=== PATIENT | female | born 1935 | race Caucasian/White ===

== ENCOUNTER 2016-08-08 09:49 | Inpatient (IN) | payer OTHER ==
[2016-07-26 13:21] VITALS: BMI 26.0
--- NOTE | 2016-07-26 14:05 | PAT Medication Instructions ---
Service Date Jul 26, 2016. Current Home Medication List Aspirin (Aspirin Ec), 81 MG PO QAM Calcium/Vitamin D (Os-Jethro 500 Plus D), 1 TAB PO QAM Cholecalciferol (Vitamin D3), 1 TAB PO QAM Cyanocobalamin (Vitamin B-12), 1,000 MCG PO QAM Fentanyl (Fentanyl), 25 MCG TOP Q72 H Fish Oil ([place]-3), 1 CAP PO QAM Folic Acid (Folvite), 1 MG PO QAM Gabapentin (Neurontin), 600 MG PO TID Hydrochlorothiazide (Hctz *), 12.5 MG PO QAM Hydrocodone/Acetaminophen 5MG/325MG ([place] 5MG/325MG), 2 TABLETS PO TID PRN for Pain Lorazepam (Ativan *), 0.5 MG PO Q8HR PRN Methotrexate Sodium (Methotrexate), 6 TAB PO MONDAY Metoprolol Tartrate (Lopressor) (Lopressor), 50 MG PO BID Multiple Vitamins W/ Minerals (Hair/Skin/Nails), 1 TAB PO QAM Multivitamin (Multivitamin), 1 TAB PO QAM Probiotic Product (Probiotic), 1 CAP PO QAM Medication Instructions For Your Scheduled Surgery - Check with surgeon/prescribing for instructions: Methotrexate Sodium (Methotrexate), 6 TAB PO MONDAY - Hold the following medications starting 07/27/16: Fish Oil ([place]-3), 1 CAP PO QAM - Hold the following medications the morning of surgery: Multivitamin (Multivitamin), 1 TAB PO QAM Probiotic Product (Probiotic), 1 CAP PO QAM Multiple Vitamins W/ Minerals (Hair/Skin/Nails), 1 TAB PO QAM Hydrochlorothiazide (Hctz *), 12.5 MG PO QAM Folic Acid (Folvite), 1 MG PO QAM Cyanocobalamin (Vitamin B-12), 1,000 MCG PO QAM Calcium/Vitamin D (Os-Jethro 500 Plus D), 1 TAB PO QAM Cholecalciferol (Vitamin D3), 1 TAB PO QAM - Take the following medications the morning of surgery with a sip of water: Metoprolol Tartrate (Lopressor) (Lopressor), 50 MG PO BID Lorazepam (Ativan *), 0.5 MG PO Q8HR PRN (if needed) Gabapentin (Neurontin), 600 MG PO TID Fentanyl (Fentanyl), 25 MCG TOP Q72 H (okay to take up to 4 hours prior to surgery if needed) Hydrocodone/Acetaminophen 5MG/325MG ([place] 5MG/325MG), 2 TABLETS PO TID PRN for Pain (okay to take up to 4 hours prior to surgery if needed) Aspirin (Aspirin Ec), 81 MG PO QAM (okay to continue per surgeon) - Take the following medications as scheduled the night before surgery: Metoprolol Tartrate (Lopressor) (Lopressor), 50 MG PO BID Lorazepam (Ativan *), 0.5 MG PO Q8HR PRN (if needed) Gabapentin (Neurontin), 600 MG PO TID Fentanyl (Fentanyl), 25 MCG TOP Q72 H (if needed) Hydrocodone/Acetaminophen 5MG/325MG ([place] 5MG/325MG), 2 TABLETS PO TID PRN for Pain (if needed) If you have any questions please call us at [phone] (Selina Burns PA-C) or [phone] or [phone]
[2016-07-26 14:42] LABS: HEMATOCRIT 41.7 % (37-47); MEAN CELL VOLUME 90.3 fL (80-100); MEAN CORPUSCULAR HEMOGLOBIN 30.1 pg (25-34); MEAN CORPUSCULAR HGB CONC 33.3 g/dl (32-36); MEAN PLATELET VOLUME 9.3 fL (7.4-10.4); PLATELET COUNT 310 K/uL (130-400); RED BLOOD COUNT 4.62 M/uL (4.2-5.4); WHITE BLOOD COUNT 6.39 K/uL (4.8-10.8)
--- NOTE | 2016-07-26 14:46 | DIAGNOSTIC IMAGING REPORT ---
CHEST PREADMISSION(PA/LAT) HISTORY: Preop. COMPARISON: Chest 03/31/2011. FINDINGS: Mild interstitial thickening at the lung bases persist. The heart is normal in size. No pleural effusions. No pneumothorax. No new focal lung consolidations. No evidence for pulmonary edema. IMPRESSION: Mild chronic interstitial thickening, unchanged. No acute process within the chest. Electronically signed by: Leonides Sainz M.D. 07/26/2016 2:44 PM Dictated Date/Time: 07/26/2016 2:43 PM
--- NOTE | 2016-07-26 14:47 | DIAGNOSTIC IMAGING REPORT ---
CERVICAL SPINE 3 VIEWS HISTORY: Millimeters right PREOP, RHEUMATOID ARTHRITIS COMPARISON: None. FINDINGS: The cervical spine is visualized from C1 through the superior endplate of T1. There is no fracture. Degenerative changes noted throughout. Degenerative grade 1 anterolisthesis C4 on C5 of the patient in neutral position. Anterolisthesis increases to 3.2 mm with the patient in flexion and reduces to 1.8 mm with patient in neutral and/or extension. There is no evidence for subluxation or positional change of the C1-C2 complex. Moderate degenerative this changes throughout. Prevertebral soft tissues and the atlantodens interval are intact. IMPRESSION: 1. Grade 1 anterolisthesis C4 on C5 secondary to degenerative changes of posterior lungs. 2. This increases from 1.8 mm to 3.2 mm with the patient in flexion. 3. No evidence for positional subluxation at C1-C2 Electronically signed by: Rajesh Narvaez M.D. 07/26/2016 2:45 PM Dictated Date/Time: 07/26/2016 2:42 PM
[2016-07-26 14:50] LABS: URINE APPEARANCE CLEAR (CLEAR); URINE BILIRUBIN NEG (NEG); URINE COLOR DK YELLOW; URINE EPITHELIAL CELL AUTO >30 /lpf (0-5); URINE NITRITE NEG (NEG); URINE PH 6.5 (4.5-7.5); URINE SPECIFIC GRAVITY 1.022 (1.000-1.030); UROBILINOGEN NEG (NEG); ZZUR CULT IF INDIC CLEAN CATCH NO
[2016-07-26 14:54] LABS: PARTIAL THROMBOPLASTIN RATIO 1.1; PROTHROMBIN TIME (PATIENT) 10.8 SECONDS (9.0-12.0)
[2016-07-26 15:00] LABS: MANUAL MICROSCOPIC REQUIRED? NO; REVIEW REQ? NO
[2016-07-26 15:14] LABS: BUN/CREATININE RATIO 9.7 (10-20); CALCIUM 9.1 mg/dl (8.5-10.1); CREATININE 0.69 mg/dl (0.60-1.20); POTASSIUM 3.7 mmol/L (3.5-5.1)
[2016-07-26 15:39] LABS: BASO % 0.8 %; BASO ABS # 0.05 K/uL (0-0.2); COMPLETE YES; EOS % 3.6 %; IG% 0.2 %; LYMPH % 36.8 %; LYMPH ABS # 2.35 K/uL (1.2-3.4); MONO % 8.9 %; NEUT % 49.7 %
--- NOTE | 2016-08-05 08:30 | HISTORY & PHYSICAL EXAMINATION ---
DATE OF ADMISSION: 08/08/2016 CHIEF COMPLAINT: Right hip pain. HISTORY OF PRESENT ILLNESS: Ms. Juares is a 81-year-old female with a multiple year history of right hip pain. The patient rates her pain at 10/10. She has pain with her daily activities. She has limited standing and walking tolerance. Pain is worse with weightbearing. The patient is using a walker to ambulate. She has been taking Tylenol and Folsom without relief. She has failed conservative treatment and is scheduled for right hip replacement. PAST MEDICAL HISTORY: Hypertension, anxiety, rheumatoid arthritis, CIDP, Sjgren's, and sleep apnea. She denies heart disease, diabetes or DVT. PAST SURGICAL HISTORY: Bilateral TKA and an old lumbar surgery. SOCIAL HISTORY: The patient denies alcohol or tobacco use. She lives in a single-robert home. 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 FAMILY HISTORY: Positive for DVT on her mother's side. MEDICATIONS: Aspirin 81 mg daily, Ativan 0.5 mg p.r.n., atorvastatin 20 mg daily, vitamin B12, fentanyl patch 25 mcg every 72 hours, fish oil, folic acid, gabapentin 300 mg 2 capsules 3 times daily, hydrochlorothiazide 25 mg half tablet daily, methotrexate 2.5 mg 6 tablets once per week, metoprolol 50 mg b.i.d., probiotic, Vicodin 5/325, vitamin D3, and pilocarpine 5 mg. ALLERGIES: PENICILLIN AND BACTRIM. REVIEW OF SYSTEMS: See HPI. Ten other systems reviewed, all negative. PHYSICAL EXAMINATION: VITAL SIGNS: Height 5 feet 4 inches, weight 154 pounds, and BMI is 26. GENERAL: This is a well-developed and well-nourished female who is alert and oriented x3. Mood and affect are appropriate. HEENT: Normocephalic and atraumatic. Mucous membranes are moist and intact. NECK: Supple without lymphadenopathy. HEART: Regular rate and rhythm without murmurs, rubs or gallops. LUNGS: Clear to auscultation without wheezes or rhonchi. ABDOMEN: Soft and nontender. Bowel sounds are equal and active. EXTREMITIES: No ecchymosis, redness or warmth. Thigh and calf are soft and nontender. Log roll of the hip reproduces the pain in the groin. Range of motion is significantly decreased. She is neurovascularly intact with +5/5 strength. She walks with an antalgic gait. X-RAY EXAMINATION: AP and lateral views show joint space narrowing and osteophyte formation. IMPRESSION: Degenerative joint disease, right hip. PLAN: The patient will be admitted for a right total hip arthroplasty. We will plan on aspirin for DVT prophylaxis. The patient is on chronic Folsom. She may have issues with pain control postoperatively. She has [facility] insurance and will need home physical therapy. GIGI
[~2016-08-08] VITALS: Ht 162.6 cm; Wt 70.4 kg
[2016-08-08] VITALS (8 sets, daily range): BP systolic 117–136; BP diastolic 63–72; PULSE 56–83; TEMP 36.4–36.7; O2SAT 94–99; Ht 162.6 cm; Wt 70.4 kg
[2016-08-08] MEDS: TRANEXAMIC ACID INJ 1,000 MG in SODIUM CHLORIDE 0.9% 100ML 100 ML IV SCH ×2 (06:30→11:23)
[~2016-08-08 09:49] MED LIST: ACETAMINOPHEN 500 MG TAB PO SCH; ASPI81TA28 PO; ATV5 PO; BUPIVACAINE 0.5 % 5 MG/1 ML PF 10ML VIAL ONE; CALC500C70 PO; CHOL1000 PO; CLINDAMYCIN 600 MG/54 ML D5W 54 ML IV SCH; CYAN10005 PO; DEXAMETHASONE 4 MG TAB PO SCH; FAMOTIDINE 20 MG TAB PO SCH; FNTTP25 TOP; FOLI1TAB7 PO; GABA-113 PO; GABAPENTIN 300 MG CAP PO SCH; HYDC25 PO; HYDR-5688 PO; LACTATED RINGER'S 1000ML IV SCH; METH2.5T PO; METO50TA16 PO; METOPROLOL TARTRATE 50 MG TAB PO SCH; MISCCAP80 PO; MULT-506 PO; MULT-580 PO; OMEG10007 PO; OXYCODONE HCL 10 MG TABCR (OXYCONTIN) PO SCH; POLYMYXIN B SULFATE 100,000 UNITS in NSS 100ML IR SCH; ROPIVACAINE 5MG/ML 30 ML 150 MG, BUPIVACAINE/EPINEPHR 0.5% MPF 30 ML, KETOROLAC TROMETH... INFIL SCH; VANCOMYCIN INJ 400 MG in NSS 100ML IR SCH
[2016-08-08] MEDS ORDERED: MIDAZOLAM HCL 1 MG/ML 2ML VIAL ONE (10:06)
[2016-08-08] MEDS ORDERED: LIDOCAINE HCL 2% 2 ML VIAL (20MG/ML) ONE (10:07)
[2016-08-08] MEDS ORDERED: FENTANYL CITRATE INJ 50 MCG/1 ML 2 ML VIAL ONE (10:07)
[2016-08-08] MEDS ORDERED: PROPOFOL IV EMULSION 10 MG/ML 20 ML VIAL IV ONE ×2 (10:07→12:24)
[2016-08-08] MEDS ORDERED: ONDANSETRON INJ 2 MG/ML 2 ML VIAL ONE (10:08)
--- NOTE | 2016-08-08 10:51 | History & Physical Bridge Note ---
H&P Re-Evaluation Bridge Note: I have examined the patient, reviewed the History & Physical and in the interval since the performance of the History & Physical I have noted the following changes of clinical significance: No changes noted
[2016-08-08] MEDS ORDERED: POVIDONE-IODINE OP SOLN 30 ML BTL ONE (11:11)
[2016-08-08] MEDS ORDERED: BACITRACIN 50000 UNIT VIAL ONE (11:11)
[2016-08-08] MEDS ORDERED: EpHEDrine SULFATE INJ 50 MG/ML AMP ONE (12:25)
[2016-08-08] MEDS ORDERED: EpHEDrine SULFATE 50MG/5ML SYR ONE (12:25)
[2016-08-08] MEDS ORDERED: TRAMADOL HCL 50 MG TAB PO PRN (13:15)
[2016-08-08] MEDS ORDERED: ALUMINUM/MAGNESIUM/SIMETH (MAALOX MAX) 30 ML UDC PO PRN (13:15)
[2016-08-08] MEDS ORDERED: ZOLPIDEM TARTRATE 5 MG TAB PO PRN (13:15)
[2016-08-08] MEDS ORDERED: MoRPHine SULFATE 2 MG/ML CARP IV PRN (13:15)
[2016-08-08] MEDS ORDERED: MAGNESIUM HYDROXIDE SUSP 30 ML UDC PO PRN (13:15)
[2016-08-08] MEDS ORDERED: SOD PHOSPHATE/SOD BIPHOSPHATE ENEMA 132 ML BTL PR PRN (13:15)
[2016-08-08] MEDS ORDERED: BISACODYL 10 MG SUPP PR PRN (13:15)
[2016-08-08] MEDS ORDERED: METOCLOPRAMIDE HCL INJ 5 MG/ML 2 ML VIAL IV PRN (13:15)
[2016-08-08] MEDS ORDERED: DiphenhydrAMINE HCL 50 MG/ML VIAL IV PRN (13:15)
[2016-08-08] MEDS ORDERED: ONDANSETRON INJ 2 MG/ML 2 ML VIAL IV PRN ×2 (13:15→15:15)
[2016-08-08] MEDS ORDERED: OXYCODONE HCL IR 5 MG TAB (IMMEDIATE RELEASE) PO PRN (13:15)
--- NOTE | 2016-08-08 13:15 | [facility] Post Operative Brief Note ---
Immediate Operative Summary Operative Date August 08, 2016. Pre-Operative Diagnosis Right Hip Degenerative Joint Disease Post-Operative Diagnosis Right Hip Degenerative Joint Disease Procedure(s) Performed Right Total Hip Arthroplasty, Direct Anterior Approach Surgeon Dr. Amadeo Quiroz Message And Delivery Service Pricer Surgeon(s) Chey Rodriguez PA-C Estimated Blood Loss 300ML Findings DJD BLOODY FROM CANAL Specimens A. Right femoral head Complication(s) None Disposition Recovery Room / PACU
--- NOTE | 2016-08-08 13:58 | DIAGNOSTIC IMAGING REPORT ---
RIGHT HIP UNILATERAL 1 VIEW CLINICAL HISTORY: RT ANTERIOR HIP Right COMPARISON: None. DISCUSSION: No evidence for a total right hip arthroplasty. Alignment appears to be anatomic. Expected soft tissue postoperative change IMPRESSION: Total right hip replacement Electronically signed by: Rajesh Narvaez M.D. 08/08/2016 1:57 PM Dictated Date/Time: 08/08/2016 1:56 PM
[2016-08-08] MEDS ORDERED: LORAZEPAM 0.5 MG TAB PO PRN (14:00)
--- NOTE | 2016-08-08 14:38 | DIAGNOSTIC IMAGING REPORT ---
RIGHT PELVIS/UNILATERAL HIP 1 VIEW CLINICAL HISTORY: IN PACU - A/P PELVIS and LATERAL HIP INCLUDING ALL OF IMPLANT Right postoperative evaluation COMPARISON: None. DISCUSSION: The bones and joint spaces appear intact. There is no evidence of fracture, dislocation or bony disease. Expected postoperative changes post right hip arthroplasty IMPRESSION: Anatomic alignment status post right hip arthroplasty Electronically signed by: Rajesh Narvaez M.D. 08/08/2016 2:36 PM Dictated Date/Time: 08/08/2016 2:35 PM
--- NOTE | 2016-08-08 14:51 | Anesthesiology Progress Note ---
Anesthesia Post Op Note Date & Time August 08, 2016 at 14:47 Vital Signs Pain Intensity: 0 Vital Signs Past 12 Hours Date Time Temp Pulse Resp B/P Pulse Ox O2 Delivery O2 Flow Rate FiO2 08/08/16 14:35 119/58 08/08/16 14:32 82 13 98 08/08/16 14:32 82 13 08/08/16 14:30 132/65 08/08/16 14:27 78 16 95 08/08/16 14:27 78 16 08/08/16 14:26 79 16 95 08/08/16 14:26 79 16 08/08/16 14:25 128/63 08/08/16 14:21 76 16 08/08/16 14:21 75 16 97 08/08/16 14:20 132/55 08/08/16 14:16 78 14 08/08/16 14:16 77 14 98 08/08/16 14:15 121/71 08/08/16 14:14 77 15 08/08/16 14:14 77 15 100 08/08/16 14:10 133/64 08/08/16 14:09 77 20 08/08/16 14:09 76 20 89 08/08/16 14:05 137/68 08/08/16 14:04 74 16 96 08/08/16 14:04 73 16 08/08/16 14:00 136/62 08/08/16 13:59 76 12 08/08/16 13:59 76 12 100 08/08/16 13:55 136/66 08/08/16 13:54 78 13 08/08/16 13:54 13 08/08/16 13:50 126/65 08/08/16 13:49 81 22 08/08/16 13:49 22 08/08/16 13:46 122/65 08/08/16 13:44 79 16 08/08/16 13:44 81 16 08/08/16 13:40 132/65 08/08/16 13:39 78 16 100 08/08/16 13:39 79 16 08/08/16 13:35 136/63 08/08/16 13:34 36.5 82 16 129/63 100 Mask 10 08/08/16 13:34 82 11 100 08/08/16 13:34 82 11 08/08/16 10:19 36.5 56 18 136/63 96 Room Air Notes Mental Status: alert / awake / arousable, participated in evaluation Pt Amnestic to Procedure: Yes Nausea / Vomiting: adequately controlled Pain: adequately controlled Airway Patency, RR, SpO2: stable & adequate BP & HR: stable & adequate Hydration State: stable & adequate Neuraxial Anesthesia: was administered, sensory block is resolving Anesthetic Complications: no major complications apparent In PACU, pt noted to have some chest pressure. She stated that it was worsened with deep inhalations. A 12 lead EKG was ordered, and there was no noticeable change from her previous EKG. Her vital signs were stable throughout. I spoke with the pt and her daughter concerning the EKG. The patient stated that her chest pressure was much improved. The patient was otherwise stable for discharge from the PACU.
[2016-08-08] MEDS ORDERED: FENTANYL CITRATE INJ 50 MCG/1 ML 2 ML VIAL IV PRN (15:15)
[2016-08-08] MEDS ORDERED: EpHEDrine SULFATE INJ 50 MG/ML AMP IV PRN (15:15)
[2016-08-08] MEDS ORDERED: ATROPINE SULFATE 0.1 MG/ML 5ML SYR IV PRN (15:15)
[2016-08-08] MEDS: CHECK FENTANYL PATCH PLACEMENT SCH (16:00)
--- NOTE | 2016-08-08 16:13 | OPERATIVE REPORT ---
DATE OF OPERATION: 08/08/2016 PREOPERATIVE DIAGNOSIS: Degenerative arthritis, right hip. POSTOPERATIVE DIAGNOSIS: Same. PROCEDURE: Right total hip replacement. SURGEON: Allen Quiroz MD SENIOR HADOOP DEVELOPER: KEI Salazar ANESTHESIA: Spinal. BLOOD LOSS: 300. REPLACEMENT FLUIDS: 2200 mL crystalloid. DRAINS: Hemovac x1. CULTURES: None. COMPLICATIONS: None. COMPONENTS USED: [employer]ud[employer] Polar hip system: Acetabulum size 50, femur size 4 high offset, femoral head -3, 32 mm. NOTE: Chey Rodriguez was present and assisted throughout due to the complicated nature of this case. She helped with preparation and set up, first assisted throughout and personally closed the fascial, subcutaneous and skin layers and applied the postoperative dressing. DESCRIPTION OF PROCEDURE: Following satisfactory spinal, the patient was supine. The right leg was placed in the traction device and the left leg in the well leg newberry. Right leg was prepared with ChloraPrep and draped sterilely. Following a surgical time-out, an anterior approach in the interval between the sartorius and tensor muscles was completed. The circumflex femoral vessels were identified and ligated. An anterior capsulotomy was performed exposing the arthritic femoral neck and head. The femoral neck and head were trimmed and removed. The acetabular self-retaining retractor was placed. Acetabular reaming was completed with fluoroscopic guidance and a 50 shell was impacted into an anatomic position, secured with a dome screw. Local anesthetic was placed and after irrigation, the poly liner was placed. The femur was placed into position of external rotation, extension and adduction. Femoral canal was prepared. There was moderate bleeding from the femoral canal itself. There was bleeding from the soft tissues. Femoral canal was prepared up to the size 4, trial reduction with a -3 head using fluoroscopy showed good fit and fill of the proximal canal and episcopal of leg lengths using anatomic julian. The trial component was removed. The final implant was placed. The hip was reduced and fluoroscopy confirmed the position. The wound was irrigated copiously and a Betadine soak was performed. After 5 minutes, the Betadine was irrigated. The capsule was closed with #1 Vicryl interrupted. Following irrigation, a drain was placed. The fascia was closed with a running suture of #1 Vicryl, the subcutaneous tissues with 2-0 Vicryl and the skin with a running subcuticular stitch of 3-0 V-Loc. Dermabond and a dry dressing were applied. The patient was returned to her bed in stable condition. I attest to the content of the Intraoperative Record and any orders documented therein. Any exceptio ns are noted below.
[2016-08-08] MEDS: D5W AND 1/2NSS + 20MEQ KCL 1,000 ML IV SCH (16:54)
[2016-08-08] MEDS: KETOROLAC TROMETHAMINE 15 MG/ML VIAL IV. SCH ×2 (16:55→21:44)
[2016-08-08] MEDS: ACETAMINOPHEN 500 MG TAB PO SCH (18:36)
[2016-08-08] MEDS ORDERED: PNEUMOCOCCAL POLYSACCHARIDES 25 MCG/0.5 ML VIAL/SYR IM. ONE (18:45)
[2016-08-08] MEDS ORDERED: PNEUMOCOCCAL ADMINISTRATION CHARGE ONE (18:45)
[2016-08-08] MEDS ORDERED: TRANEXAMIC ACID INJ 1,000 MG in SODIUM CHLORIDE 0.9% 100ML 100 ML IV ONE (19:30)
[2016-08-08] MEDS: CLINDAMYCIN IV 600 MG in DEXTROSE 5% ADD-VANTAGE 50ML 50 ML IV SCH (20:29)
[2016-08-08] MEDS: ASPIRIN 81 MG ECTAB PO SCH (20:32)
[2016-08-08] MEDS: METOPROLOL TARTRATE 50 MG TAB PO SCH (20:32)
[2016-08-08] MEDS: GABAPENTIN 600 MG TAB PO SCH (20:33)
[2016-08-08] MEDS ORDERED: SENNA 8.6 MG TAB PO SCH (21:00)
[2016-08-09] MEDS: CHECK FENTANYL PATCH PLACEMENT SCH ×3 (00:07→15:37)
[2016-08-09] MEDS: ACETAMINOPHEN 500 MG TAB PO SCH ×2 (01:52→09:11)
[2016-08-09] MEDS: D5W AND 1/2NSS + 20MEQ KCL 1,000 ML IV SCH ×2 (01:52→12:00)
[2016-08-09 03:31] VITALS: BP 126/72; PULSE 61; TEMP 36.5; O2SAT 96
[2016-08-09 05:09] LABS: BASO % 0.1 %; BASO ABS # 0.01 K/uL (0-0.2); HEMATOCRIT 32.6 % (37-47); IG% 0.3 %; LYMPH % 8.3 %; LYMPH ABS # 1.25 K/uL (1.2-3.4); MEAN CELL VOLUME 86.9 fL (80-100); MEAN CORPUSCULAR HEMOGLOBIN 30.4 pg (25-34); MEAN PLATELET VOLUME 8.8 fL (7.4-10.4); MONO % 6.1 %; NEUT % 85.2 %; PLATELET COUNT 231 K/uL (130-400); RED BLOOD COUNT 3.75 M/uL (4.2-5.4); WHITE BLOOD COUNT 15.14 K/uL (4.8-10.8)
[2016-08-09 05:12] LABS: COMPLETE YES
[2016-08-09 05:29] LABS: BUN/CREATININE RATIO 19.2 (10-20); CREATININE 0.62 mg/dl (0.60-1.20); MAGNESIUM 1.7 mg/dl (1.8-2.4); POTASSIUM 4.8 mmol/L (3.5-5.1)
[2016-08-09] MEDS: KETOROLAC TROMETHAMINE 15 MG/ML VIAL IV. SCH (06:00)
[2016-08-09] MEDS: CLINDAMYCIN IV 600 MG in DEXTROSE 5% ADD-VANTAGE 50ML 50 ML IV SCH (06:01)
--- NOTE | 2016-08-09 06:40 | DIAGNOSTIC IMAGING REPORT ---
HEAD CT NONCONTRAST CT DOSE: 614.27 mGy.cm HISTORY: Mental status change confusion TECHNIQUE: Multiaxial CT images of the head were performed without the use of intravenous contrast. Comparison: None. Findings: The paranasal sinuses and mastoid air cells are clear. The calvarium and skull base are intact. The ventricles and sulci are within normal limits. There is no mass, hematoma, midline shift, or acute infarct. Findings of age-related chronic small vessel change and atrophy. Impression: No acute intracranial abnormality. Age-related change Electronically signed by: Rajesh Narvaez M.D. 08/09/2016 6:38 AM Dictated Date/Time: 08/09/2016 6:37 AM
[2016-08-09 07:24] VITALS: BP 121/70; PULSE 67; TEMP 36.5; O2SAT 97
[2016-08-09] MEDS ORDERED: CHOLECALCIFEROL 1000 INTER.UNIT TAB PO SCH (09:00)
[2016-08-09] MEDS ORDERED: PANTOprazole SOD 40 MG TAB PO SCH (09:00)
[2016-08-09] MEDS ORDERED: HYDROCHLOROTHIAZIDE 25 MG TAB PO SCH (09:00)
[2016-08-09] MEDS ORDERED: LACTOBACILLUS ACIDOPHILUS (FLORANEX) TAB PO SCH (09:00)
[2016-08-09] MEDS ORDERED: CALCIUM 600MG + VIT D 400 IU TAB PO SCH (09:00)
[2016-08-09] MEDS ORDERED: MULTIVITAMIN TAB PO SCH (09:00)
[2016-08-09] MEDS ORDERED: CYANOCOBALAMIN 500 MCG TAB (VIT B-12) PO SCH (09:00)
[2016-08-09] MEDS: GABAPENTIN 600 MG TAB PO SCH ×2 (09:06→12:48)
[2016-08-09] MEDS: METOPROLOL TARTRATE 50 MG TAB PO SCH (09:07)
[2016-08-09] MEDS: ASPIRIN 81 MG ECTAB PO SCH (09:07)
--- NOTE | 2016-08-09 09:34 | Anesthesiology Progress Note ---
Anesthesia Post Op Note Date & Time August 09, 2016 at 09:33 Vital Signs Pain Intensity: 0.0 Vital Signs Past 12 Hours Date Time Temp Pulse Resp B/P Pulse Ox O2 Delivery O2 Flow Rate FiO2 08/09/16 07:24 36.5 67 16 121/70 97 Room Air 08/09/16 03:31 36.5 61 14 126/72 96 Room Air 08/09/16 00:00 Room Air 08/08/16 22:22 36.5 67 16 124/65 94 Room Air Notes Mental Status: alert / awake / arousable, participated in evaluation Pt Amnestic to Procedure: Yes Nausea / Vomiting: adequately controlled Pain: adequately controlled Airway Patency, RR, SpO2: stable & adequate BP & HR: stable & adequate Hydration State: stable & adequate Neuraxial Anesthesia: sensory block resolved Anesthetic Complications: no major complications apparent
--- NOTE | 2016-08-09 09:50 | Orthopedic Progress Note ---
Orthopedic Progress Note Date of Service August 09, 2016. Subjective Post OP Day: 1 Reports: feeling well, Denies: SOB, calf pain, chest pain, light headedness, nausea / vomiting Additional Notes: WOKE UP LAST NIGHT WITH CONFUSION. MEDICINE CONSULTED, HEAD CT NEGATIVE. Objective calves soft nontender, N/V intact, hip located, dressing C/D/I, A&O x3, toes mobile, hemovac drainage (180/140CC PER SHIFT) Date Time Temp Pulse Resp B/P Pulse Ox O2 Delivery O2 Flow Rate FiO2 08/09/16 07:24 36.5 67 16 121/70 97 Room Air 08/09/16 07:10 Room Air 08/09/16 03:31 36.5 61 14 126/72 96 Room Air 08/09/16 00:00 Room Air 08/08/16 22:22 36.5 67 16 124/65 94 Room Air 08/08/16 19:26 36.6 80 16 119/69 99 Nasal Cannula 2.0 08/08/16 18:36 36.6 83 16 117/64 98 Nasal Cannula 2.0 08/08/16 17:31 36.7 83 18 122/69 97 Nasal Cannula 3.0 08/08/16 16:30 36.4 82 16 118/72 97 Nasal Cannula 3.0 08/08/16 15:56 36.4 83 14 129/72 95 Nasal Cannula 2.0 08/08/16 15:30 95 Nasal Cannula 2.0 08/08/16 15:30 36.5 83 14 122/68 95 Nasal Cannula 2.0 08/08/16 15:30 95 Nasal Cannula 2.0 08/08/16 15:22 84 16 92 08/08/16 15:22 84 16 08/08/16 15:20 129/63 08/08/16 15:17 83 16 08/08/16 15:17 84 16 92 08/08/16 15:15 127/68 08/08/16 15:12 82 16 93 08/08/16 15:12 82 16 08/08/16 15:10 124/64 08/08/16 15:07 80 13 95 08/08/16 15:07 80 13 08/08/16 15:05 136/65 08/08/16 15:02 80 14 08/08/16 15:02 80 14 95 08/08/16 15:02 37.5 08/08/16 15:00 135/67 08/08/16 14:57 80 17 97 08/08/16 14:57 81 17 08/08/16 14:56 81 13 97 08/08/16 14:56 80 13 08/08/16 14:55 127/62 08/08/16 14:51 78 14 99 08/08/16 14:51 78 14 08/08/16 14:50 135/62 08/08/16 14:46 79 12 08/08/16 14:46 79 12 98 08/08/16 14:45 121/59 08/08/16 14:41 77 17 97 08/08/16 14:41 79 17 08/08/16 14:40 124/67 08/08/16 14:36 83 20 97 08/08/16 14:36 82 20 08/08/16 14:35 119/58 08/08/16 14:32 82 13 98 08/08/16 14:32 82 13 08/08/16 14:30 132/65 08/08/16 14:27 78 16 95 08/08/16 14:27 78 16 08/08/16 14:26 79 16 95 08/08/16 14:26 79 16 08/08/16 14:25 128/63 08/08/16 14:21 76 16 08/08/16 14:21 75 16 97 08/08/16 14:20 132/55 08/08/16 14:16 78 14 08/08/16 14:16 77 14 98 08/08/16 14:15 121/71 08/08/16 14:14 77 15 08/08/16 14:14 77 15 100 08/08/16 14:10 133/64 08/08/16 14:09 77 20 08/08/16 14:09 76 20 89 08/08/16 14:05 137/68 08/08/16 14:04 74 16 96 08/08/16 14:04 73 16 08/08/16 14:00 136/62 08/08/16 13:59 76 12 08/08/16 13:59 76 12 100 08/08/16 13:55 136/66 08/08/16 13:54 78 13 08/08/16 13:54 13 08/08/16 13:50 126/65 08/08/16 13:49 81 22 08/08/16 13:49 22 08/08/16 13:46 122/65 08/08/16 13:44 79 16 08/08/16 13:44 81 16 08/08/16 13:40 132/65 08/08/16 13:39 78 16 100 08/08/16 13:39 79 16 08/08/16 13:35 136/63 08/08/16 13:34 36.5 82 16 129/63 100 Mask 10 08/08/16 13:34 82 11 100 08/08/16 13:34 82 11 08/08/16 10:19 36.5 56 18 136/63 96 Room Air Laboratory Results 24 Hours: Test 08/09/16 05:00 White Blood Count 15.14 K/uL Red Blood Count 3.75 M/uL Hemoglobin 11.4 g/dL Hematocrit 32.6 % Mean Corpuscular Volume 86.9 fL Mean Corpuscular Hemoglobin 30.4 pg Mean Corpuscular Hemoglobin Concent 35.0 g/dl Platelet Count 231 K/uL Mean Platelet Volume 8.8 fL Neutrophils (%) (Auto) 85.2 % Lymphocytes (%) (Auto) 8.3 % Monocytes (%) (Auto) 6.1 % Eosinophils (%) (Auto) 0.0 % Basophils (%) (Auto) 0.1 % Neutrophils # (Auto) 12.92 K/uL Lymphocytes # (Auto) 1.25 K/uL Monocytes # (Auto) 0.92 K/uL Eosinophils # (Auto) 0.00 K/uL Basophils # (Auto) 0.01 K/uL Assessment & Plan Assessment: POD#1 SP RIGHT FLORENTINO, DIRECT ANTERIOR CONFUSION Plan: CONFUSION LIKELY FROM MEDICATIONS VS SUNDOWNING. WILL DC SHANELL AND PUT PATIENT BACK ON NORMAL VICODIN DOSAGE. Inhouse Planning Pain Management: Celebrex, PO Tylenol, Oxy IR DVT Prophylaxis: TEDs, SCDs, ASA Discharge Planning Discharge Planning: home with home health ([facility] LATER TODAY)
[2016-08-09] MEDS ORDERED: HYDROCODONE/ACETAMOPHEN 5/325MG TAB PO PRN (10:00)
--- NOTE | 2016-08-09 10:17 | Neurology Consultation ---
Neurology Consultation Date of Consultation: August 09, 2016. Attending Physician: Allen Quiroz M.D. Primary Care Physician: No Doctor, Assigned Reason for Consultation: Confusion History of Present Illness Source: patient, hospital records The patient is a 81-year-old female who underwent right total hip arthroplasty yesterday. She exhibited significant confusion upon being awoken for vital signs at around 4:30 in the morning. Her daughter is present at bedside and expresses some concerns regarding her mother's cognitive status. The patient's confusion has resolved, however. She does seem to be back at her baseline according to her daughter. Upon further questioning she has been exhibiting some mild difficulty with short-term memory on occasion. She does not have a known history of dementia. She has been complaining of some difficulty with poor balance of insidious onset over the past year or so as well. She denies any episodes of ravi urinary incontinence but does admit to some urgency from time to time. She denies headache. I reviewed the images and radiologist's interpretation of the CT of the recently completed CT of the head. There is evidence of mild generalized atrophy with an element of central atrophy as well as chronic small vessel ischemic change. No hemorrhage or other acute process appreciated. The patient's daughter shows me a brain MRI report from a study done at an outside institution in May of this year. Results were similar to the recent CT of the head indicating the presence of atrophy and chronic small vessel ischemic change. The study was apparently done to further evaluate some confusion around that time. Past Medical/Surgical History Past medical history notable for hypertension, rheumatoid arthritis and peripheral neuropathy. She apparently follows with a neurologist at an outside institution. Family History No family history of no neurodegenerative disease such as Alzheimer's or Parkinson's disease. Social History The patient is an active elderly female. She was born in [place]. She met her who is serving in the [employer] while he was serving in [employer]. Smoking Status: Never smoker Allergies Coded Allergies: Penicillins (Verified Allergy, Mild, UNSURE, 08/08/16) Sulfamethoxazole w/Trimethoprim (Verified Allergy, Mild, UNSURE, 08/08/16) Current Inpatient Medications Current Inpatient Medications Medications (Trade) Dose Ordered Sig/Mike Route Start Time Stop Time Status Last Admin Dose Admin Potassium Chloride/Dextrose/ Sod Cl (D5W And 1/2nss + 20meq KCl) 1,000 ml @ 100 mls/hr Q10H IV 08/08/16 16:00 08/09/16 13:14 08/09/16 01:52 100 MLS/HR Morphine Sulfate (MoRPHine SULFATE INJ) 2 mg Q2HWA PRN IV 08/08/16 13:15 08/22/16 13:14 Acetaminophen (Tylenol Tab) 1,000 mg Q8H PO 08/08/16 18:00 09/07/16 13:14 08/09/16 09:11 1,000 MG Magnesium Hydroxide (Milk Of Magnesia Susp) 30 ml Q6H PRN PO 08/08/16 13:15 09/07/16 13:14 08/09/16 07:28 30 ML Bisacodyl (Dulcolax Supp) 10 mg DAILY PRN [place] 08/08/16 13:15 09/07/16 13:14 Sodium Biphosphate/ Sodium Phosphate (Fleet Enema) 132 ml DAILY PRN [place] 08/08/16 13:15 09/07/16 13:14 Senna (Senokot Tab) 17.2 mg HS PO 08/08/16 21:00 09/07/16 20:59 08/08/16 20:32 17.2 MG Diphenhydramine HCl (Benadryl Cap) 25 mg Q8H PRN PO 08/08/16 13:15 09/07/16 13:14 Diphenhydramine HCl (Benadryl Inj) 25 mg Q8H PRN IV 08/08/16 13:15 09/07/16 13:14 Al Hydrox/Mg Hydrox/Simethicone (Maalox Max Susp) 15 ml Q4H PRN PO 08/08/16 13:15 09/07/16 13:14 Zolpidem Tartrate (Ambien Tab) 5 mg HSZ PRN PO 08/08/16 13:15 09/07/16 13:14 Multivitamins (Multivitamin Tab) 1 tab QAM PO 08/09/16 09:00 09/08/16 08:59 08/09/16 09:07 1 TAB Ondansetron HCl (Zofran Inj) 4 mg Q6H PRN IV 08/08/16 13:15 09/07/16 13:14 08/08/16 18:36 4 MG Metoclopramide HCl (Reglan Inj) 10 mg Q6H PRN IV 08/08/16 13:15 09/07/16 13:14 Pantoprazole Sodium (Protonix Tab) 40 mg QAM PO 08/09/16 09:00 09/08/16 08:59 08/09/16 09:06 40 MG Tramadol HCl (Ultram Tab) 1 TABLET FOR PAIN RATING... Q4H PRN PO 08/08/16 13:15 09/07/16 13:14 Aspirin (Ecotrin Tab) 81 mg BID PO 08/08/16 21:00 09/07/16 20:59 08/09/16 09:07 81 MG Calcium/Vitamin D (Caltrate Plus Tab) 1 tab QAM PO 08/09/16 09:00 09/08/16 08:59 08/09/16 09:09 1 TAB Cholecalciferol (Vitamin D Tab) 1,000 inter.unit QAM PO 08/09/16 09:00 09/08/16 08:59 08/09/16 09:08 1,000 INTER.UNIT Cyanocobalamin (Vitamin B-12 Tab) 1,000 mcg QAM PO 08/09/16 09:00 09/08/16 08:59 08/09/16 09:09 1,000 MCG Fentanyl (Duragesic Patch) 25 mcg Q3D@0900 TD 08/11/16 09:00 08/25/16 08:59 Folic Acid (Folvite Tab) 1 mg QAM PO 08/09/16 09:00 09/08/16 08:59 08/09/16 09:09 1 MG Gabapentin (Neurontin Tab) 600 mg TID PO 08/08/16 21:00 09/07/16 20:59 08/09/16 09:06 600 MG Hydrochlorothiazide (Hydrochlorothiazide Tab) 12.5 mg QAM PO 08/09/16 09:00 09/08/16 08:59 08/09/16 09:08 12.5 MG Lorazepam (Ativan Tab) 0.5 mg Q8 PRN PO 08/08/16 14:00 09/07/16 13:59 08/09/16 09:27 0.5 MG Metoprolol Tartrate (Lopressor Tab) 50 mg BID PO 08/08/16 21:00 09/07/16 20:59 5/2/17 09:07 50 MG Lactobacillus Acidophilus (Floranex Tab) 1 tab QAM PO 08/09/16 09:00 09/08/16 08:59 08/09/16 09:07 1 TAB Miscellaneous (Fentanyl Patch Remove & Waste) 1 ea Q3D@0859 N/A 08/11/16 08:59 09/10/16 08:58 Miscellaneous Information (Check Fentanyl Patch Placement) 1 ea QS N/A 08/08/16 16:00 09/07/16 15:59 08/09/16 08:00 1 EA Ketorolac Tromethamine (Toradol Inj) 15 mg Q6H IV. 08/09/16 12:00 08/10/16 12:01 Acetaminophen/ Hydrocodone Bitart ([place] 5/325 Tab) 1 tab Q4 PRN PO 08/09/16 10:00 08/23/16 09:59 UNV Review of Systems The patient denies fever, chills, vision change, hearing change, chest pain, palpitations, coughing, wheezing, shortness of breath, abdominal pain, diarrhea , dysuria, myalgia, rash, abnormal bleeding, swollen glands, depression or anxiety. A full 10 point review of systems was obtained from this patient with pertinent positives and negatives as described in the history of present illness and otherwise listed above. Physical Exam Vital Signs (Past 24 Hrs): Date Time Temp Pulse Resp B/P Pulse Ox O2 Delivery O2 Flow Rate FiO2 08/09/16 07:24 36.5 67 16 121/70 97 Room Air 08/09/16 07:10 Room Air 08/09/16 03:31 36.5 61 14 126/72 96 Room Air 08/09/16 00:00 Room Air 08/08/16 22:22 36.5 67 16 124/65 94 Room Air 08/08/16 19:26 36.6 80 16 119/69 99 Nasal Cannula 2.0 08/08/16 18:36 36.6 83 16 117/64 98 Nasal Cannula 2.0 08/08/16 17:31 36.7 83 18 122/69 97 Nasal Cannula 3.0 08/08/16 16:30 36.4 82 16 118/72 97 Nasal Cannula 3.0 08/08/16 15:56 36.4 83 14 129/72 95 Nasal Cannula 2.0 08/08/16 15:30 95 Nasal Cannula 2.0 08/08/16 15:30 36.5 83 14 122/68 95 Nasal Cannula 2.0 08/08/16 15:30 95 Nasal Cannula 2.0 08/08/16 15:22 84 16 92 08/08/16 15:22 84 16 08/08/16 15:20 129/63 08/08/16 15:17 83 16 08/08/16 15:17 84 16 92 08/08/16 15:15 127/68 08/08/16 15:12 82 16 93 08/08/16 15:12 82 16 08/08/16 15:10 124/64 08/08/16 15:07 80 13 95 08/08/16 15:07 80 13 08/08/16 15:05 136/65 08/08/16 15:02 80 14 08/08/16 15:02 80 14 95 08/08/16 15:02 37.5 08/08/16 15:00 135/67 08/08/16 14:57 80 17 97 08/08/16 14:57 81 17 08/08/16 14:56 81 13 97 08/08/16 14:56 80 13 08/08/16 14:55 127/62 08/08/16 14:51 78 14 99 08/08/16 14:51 78 14 08/08/16 14:50 135/62 08/08/16 14:46 79 12 08/08/16 14:46 79 12 98 08/08/16 14:45 121/59 08/08/16 14:41 77 17 97 08/08/16 14:41 79 17 08/08/16 14:40 124/67 08/08/16 14:36 83 20 97 08/08/16 14:36 82 20 08/08/16 14:35 119/58 08/08/16 14:32 82 13 98 08/08/16 14:32 82 13 08/08/16 14:30 132/65 08/08/16 14:27 78 16 95 08/08/16 14:27 78 16 08/08/16 14:26 79 16 95 08/08/16 14:26 79 16 08/08/16 14:25 128/63 08/08/16 14:21 76 16 5/1/17 14:21 75 16 97 08/08/16 14:20 132/55 08/08/16 14:16 78 14 08/08/16 14:16 77 14 98 08/08/16 14:15 121/71 08/08/16 14:14 77 15 08/08/16 14:14 77 15 100 08/08/16 14:10 133/64 08/08/16 14:09 77 20 08/08/16 14:09 76 20 89 08/08/16 14:05 137/68 08/08/16 14:04 74 16 96 08/08/16 14:04 73 16 08/08/16 14:00 136/62 08/08/16 13:59 76 12 08/08/16 13:59 76 12 100 08/08/16 13:55 136/66 08/08/16 13:54 78 13 08/08/16 13:54 13 08/08/16 13:50 126/65 08/08/16 13:49 81 22 08/08/16 13:49 22 08/08/16 13:46 122/65 08/08/16 13:44 79 16 08/08/16 13:44 81 16 08/08/16 13:40 132/65 08/08/16 13:39 78 16 100 08/08/16 13:39 79 16 08/08/16 13:35 136/63 08/08/16 13:34 36.5 82 16 129/63 100 Mask 10 08/08/16 13:34 82 11 100 08/08/16 13:34 82 11 08/08/16 10:19 36.5 56 18 136/63 96 Room Air The patient is a well-developed, well-nourished, elderly female. She is lying in bed in no acute distress. Her daughter is at bedside. The patient is alert and oriented to person place and time. She exhibits intact recent and remote memory as well as normal concentration and attention. She is able to name objects, repeat phrases, and reads text without difficulty. She exhibits a normal spontaneous, fluent speech pattern as well as a normal vocabulary and age -appropriate fund of knowledge. Visual murray full to confrontation. Visual acuity normal. Pupils equal round reactive to light and accommodation. Eye movements normal. No nystagmus. Facial sensation intact bilaterally. There is no facial droop or weakness. Palate elevates to midline. Tongue protrudes to midline. Shoulder shrug and hearing intact bilaterally. There is diminished sensation to vibration at the ankles bilaterally. Other sensory modalities including light touch and temperature sensation intact for the arms and legs. There is no dysmetria with finger to nose or heel to starr. No difficulty with rapid alternating movements. Deep tendon reflexes are 2+ at the triceps, biceps , brachial radialis, and patellar tendons bilaterally. Achilles tendon reflexes are absent bilaterally. Plantar responses downgoing bilaterally. Ophthalmoscopic examination reveals normal-appearing optic nerves and posterior elements. No papilledema or hemorrhages. Carotid pulses normal bilaterally, no bruits to auscultation. Musculoskeletal examination reveals intact strength for the arms and legs bilaterally. There is some limitation of motor testing of the right lower extremity due to her recent right total hip arthroplasty and associated postsurgical discomfort. She appears to have mild bilateral foot drops but does not have significant weakness with direct testing of ankle/foot dorsiflexion strength. Station normal. Gait antalgic, ambulates with walker. Does not have a magnetic or apractic-appearing gait. Laboratory Results Past 24 Hours: 08/09/16 05:00 Red Blood Count 3.75, Mean Corpuscular Volume 86.9, Mean Corpuscular Hemoglobin 30.4, Mean Corpuscular Hemoglobin Concent 35.0, Mean Platelet Volume 8.8, Neutrophils (%) (Auto) 85.2, Lymphocytes (%) (Auto) 8.3, Monocytes (%) (Auto) 6.1, Eosinophils (%) (Auto) 0.0, Basophils (%) (Auto) 0.1, Neutrophils # (Auto) 12.92, Lymphocytes # (Auto) 1.25, Monocytes # (Auto) 0.92, Eosinophils # (Auto) 0.00, Basophils # (Auto) 0.01 08/09/16 05:00 Test 08/09/16 05:00 White Blood Count 15.14 K/uL (4.8-10.8) Red Blood Count 3.75 M/uL (4.2-5.4) Hemoglobin 11.4 g/dL (12.0-16.0) Hematocrit 32.6 % (37-47) Mean Corpuscular Volume 86.9 fL (80-100) Mean Corpuscular Hemoglobin 30.4 pg (25-34) Mean Corpuscular Hemoglobin Concent 35.0 g/dl (32-36) Platelet Count 231 K/uL (130-400) Mean Platelet Volume 8.8 fL (7.4-10.4) Neutrophils (%) (Auto) 85.2 % Lymphocytes (%) (Auto) 8.3 % Monocytes (%) (Auto) 6.1 % Eosinophils (%) (Auto) 0.0 % Basophils (%) (Auto) 0.1 % Neutrophils # (Auto) 12.92 K/uL (1.4-6.5) Lymphocytes # (Auto) 1.25 K/uL (1.2-3.4) Monocytes # (Auto) 0.92 K/uL (0.11-0.59) Eosinophils # (Auto) 0.00 K/uL (0-0.5) Basophils # (Auto) 0.01 K/uL (0-0.2) RDW Standard Deviation 41.2 fL (36.4-46.3) RDW Coefficient of Variation 12.8 % (11.5-14.5) Immature Granulocyte % (Auto) 0.3 % Immature Granulocyte # (Auto) 0.04 K/uL (0.00-0.02) Anion Gap 6.0 mmol/L (3-11) Est Creatinine Clear Calc Drug Dose 70.9 ml/min Estimated GFR () 99.4 Estimated GFR (Non- 85.8 BUN/Creatinine Ratio 19.2 (10-20) Calcium Level 8.0 mg/dl (8.5-10.1) Magnesium Level 1.7 mg/dl (1.8-2.4) Total Bilirubin 0.3 mg/dl (0.2-1) Aspartate Amino Transf (AST/SGOT) 20 U/L (15-37) Alanine Aminotransferase (ALT/SGPT) 20 U/L (12-78) Alkaline Phosphatase 64 U/L (45-117) Total Protein 5.7 gm/dl (6.4-8.2) Albumin 2.8 gm/dl (3.4-5.0) Globulin 2.9 gm/dl (2.5-4.0) Albumin/Globulin Ratio 1.0 (0.9-2) Impression Resolved episode of confusion occurring in the postsurgical setting for right total hip arthroplasty. This patient may have mild cognitive impairment related to age although she appeared to do well with cognitive testing this morning. No evidence for a recent embolic stroke on examination or with recent CT of the head. CT of the head does reveal an element of central atrophy although her gait does not appear grossly magnetic or apractic. Therefore, normal pressure hydrocephalus seems unlikely. Plan I do not think further neurological testing is needed at this time. This patient may follow-up with me or her usual neurologist in the outpatient setting. Please contact me if I may be of further assistance.
[2016-08-09 11:35] VITALS: BP_SYST 110; BP_SYST 112; BP_DIAS 61; BP_DIAS 62; PULSE 56; PULSE 62; TEMP 36.5; O2SAT 96
[2016-08-09] MEDS ORDERED: KETOROLAC TROMETHAMINE 15 MG/ML VIAL IV. SCH (12:00)
--- NOTE | 2016-08-09 12:12 | Clinical Documentation Query ---
CLINICAL DOCUMENTATION QUERY 81-y/o female who has undergone right THR. She had increased confusion and agitation early AM POD#1. Family was adamant that this was not patient's baseline. 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 ( ) Other explanation of clinical findings (Please Explain) ( ) Unable to determine (Please Define) ( ) Need to Discuss ( ) Not Agree The medical record reflects the following clinical findings, treatment, and risk factors. Clinical Indicators: As above. Treatment: Head CT, neuro consult, hospitalist consult, DC of Roxicodone, [place] held, bed alarm, Risk Factors: Age, Narcotics necessary for surgery and post operative pain control. Please clarify and document your clinical opinion in the progress notes and discharge summary. Terms such as "probable", "suspected", "likely", "questionable", "possible", or "still to be ruled out" are acceptable. IF IN AGREEMENT, YOU MUST DOCUMENT ABOVE DIAGNOSTIC STATEMENT IN DAILY PROGRESS NOTES AND DISCHARGE SUMMARY. This document is not part of the patient's record. Thank You, Rayray Pedraza, RN [phone]
--- NOTE | 2016-08-09 12:13 | Clinical Documentation Query ---
CLINICAL DOCUMENTATION QUERY 81-y/o female who has undergone right THR. She had increased confusion and agitation early AM POD#1. Family was adamant that this was not patient's baseline. 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 ( ) Other explanation of clinical findings (Please Explain) ( ) Unable to determine (Please Define) ( ) Need to Discuss ( ) Not Agree The medical record reflects the following clinical findings, treatment, and risk factors. Clinical Indicators: As above. Treatment: Head CT, neuro consult, hospitalist consult, DC of Roxicodone, [place] held, bed alarm, Risk Factors: Age, Narcotics necessary for surgery and post-operative pain control. Please clarify and document your clinical opinion in the progress notes and discharge summary. Terms such as "probable", "suspected", "likely", "questionable", "possible", or "still to be ruled out" are acceptable. IF IN AGREEMENT, YOU MUST DOCUMENT ABOVE DIAGNOSTIC STATEMENT IN DAILY PROGRESS NOTES AND DISCHARGE SUMMARY. This document is not part of the patient's record. Thank You, Rayray Pedraza, BERNY [phone]
--- NOTE | 2016-08-09 12:16 | Clinical Documentation Query ---
CLINICAL DOCUMENTATION QUERY 81-y/o female who has undergone right THR. She had increased confusion and agitation early AM POD#1. Family was adamant that this was not patient's baseline. 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 ( ) Other explanation of clinical findings (Please Explain) ( X ) Unable to determine (Please Define) I AM NOT A PSYCHIATRIST I BELKEIEVE SHE WAS SUNDOWNING OR MILD HOSPITAL PSYCHOSIS THERE WAS NO MEDICAL REASON FOR THIS OTHERR THAN SURGERY ADVANCED AGE AND CHRONIC NARCOTIC USE ( ) Need to Discuss ( ) Not Agree The medical record reflects the following clinical findings, treatment, and risk factors. Clinical Indicators: As above. Treatment: Head CT, neuro consult, hospitalist consult, DC of Roxicodone, [place] held, bed alarm, Risk Factors: Age, Narcotics necessary for surgery and post operative pain control. Please clarify and document your clinical opinion in the progress notes and discharge summary. Terms such as "probable", "suspected", "likely", "questionable", "possible", or "still to be ruled out" are acceptable. IF IN AGREEMENT, YOU MUST DOCUMENT ABOVE DIAGNOSTIC STATEMENT IN DAILY PROGRESS NOTES AND DISCHARGE SUMMARY. This document is not part of the patient's record. Thank You, Rayray Pedraza, RN [phone]
[2016-08-09] MEDS ORDERED: NURSING VERBAL MED ORDER ONE (12:45)
--- NOTE | 2016-08-09 13:33 | Discharge Instructions ---
Discharge Instructions Date of Service August 09, 2016. Admission Reason for Admission: Right Hip Degenerative Arthritis Discharge Discharge Diagnosis / Problem: sp right mike, direct anterior Discharge Goals Goal(s): Decrease discomfort, Improve function, Increase independence Activity Recommendations Activity Limitations: per Instructions/Follow-up section . Instructions / Follow-Up Instructions / Follow-Up ACTIVITY RECOMMENDATIONS: SELF CARE INSTRUCTIONS AFTER TOTAL HIP REPLACEMENT : Direct Anterior Approach Until the incision and soft tissues around your hip have healed, there is a possibility that the hip prosthesis could dislocate. A. Hip flexion ( Up & Down out of chair or steps ) may be difficult. This is normal. B. Numbness in front of the thigh is also normal for a few weeks. C. Use hand rails when walking on stairs. D. Wear low heeled shoes with non-slip soles. E. Be sure that your floors are free of things that could trip you - throw rugs , electrical cords, small objects. Avoid wet and waxed floors, especially with crutches and canes. F. Try to walk several times a day with rest periods between. G. Continue with all the exercises taught to you in the hospital. Again, make walking a part of your daily routine. SPECIAL CARE INSTRUCTIONS: VERY IMPORTANT TO READ AND REVIEW A. You may still be at risk for phlebitis and blood clots. 1. Wear surgical stockings (EL hose) for 2 weeks after surgery to improve circulation and reduce swelling. 2. Take Aspirin 81mg twice daily for 4 weeks or as directed by your doctor. This is your blood thinner. 3. High risk patients may be prescribed a stronger blood thinner if necessary. 4. If you are on Coumadin normally, your family doctor/sandblaster glass should monitor your blood work. Expect a phone call the day of or the day after bloodwork is drawn to adjust your dosage. B. You must take antibiotics before having dental work, bladder, bowel and other surgery. Your doctor will provide you with a permanent card to carry describing precautions. C. Call [facility] [place] if you have a fever, redness or swelling around the incision, cloudy drainage from incision, or sudden increase in pain in your hip, not relieved by your regular pain medication. D. Please call the office at if you have any concerns or questions about your operation or recovery. * YOU MAY SHOWER, NO TUB BATHS UNTIL CLEARED BY YOUR DOCTOR. - Keep an extra close eye on the top portion of your incision. Be sure to keep clean & dry. * WEAR EL HOSE 20 HOURS PER DAY FOR 2 WEEKS. * YOU MAY PROGRESS FROM A WALKER, TO A CANE, TO INDEPENDENT AT YOUR OWN PACE. * MOST PATIENTS WILL HAVE HOME NURSING FOR THERAPY. IF YOU DECIDE TO DO OUTPATIENT PHYSICAL THERAPY, PLEASE SCHEDULE THIS 3 TIMES PER WEEK. * DERMABOND Prineo- This is a mesh tape dressing that is covered with glue. It should remain in place until the incision is properly healed, usually 10-14 days. This dressing is designed to naturally slough off. You may trim the excess mesh tape as it peels off. Incision may be briefly wet in a shower. Dry immediately by blotting with a clean, dry towel. Do not bath or swim until instructed by your doctor. Do not scratch, rub, or pick at the dressing. Do not apply any topical ointments or lotions until dressing is completely removed and/or instructed by your doctor. There may be a small piece of suture material at one end of your incision. Do not pull or trim this. If it is bothersome or catching on clothing, you may cover it with a band-aid. FOLLOW UP VISIT: If appointment is not already scheduled: Please call [facility] to make a follow-up appointment for 2 weeks after your surgery at . Current Hospital Diet Patient's current hospital diet: Regular Diet Discharge Diet Recommended Diet: Regular Diet Procedures Procedures Performed: Right Total Hip Arthroplasty, Direct Anterior Approach Pending Studies Studies pending at discharge: no Medical Emergencies . Who to Call and When: Medical Emergencies: If at any time you feel your situation is an emergency, please call 911 immediately. . Non-Emergent Contact Non-Emergency issues call your: Surgeon . "Provider Documentation" section prepared by Chey Rodriguez. . VTE Core Measure Inpt VTE Proph given/why not?: Other Anticoagulation, T.E.D. Stockings, SCD's [place] Drug Monitoring Program Search Results: patient reviewed within database, no issues identified
[2016-08-09 15:06] VITALS: BP 136/65; PULSE 99; TEMP 36.4; O2SAT 90
[2016-08-09] MEDS ORDERED: HYDR-5688 PO (15:14)
[2016-08-09] MEDS ORDERED: SNK PO (15:14)
[2016-08-09] MEDS ORDERED: ONDA8TAB6 PO (15:14)
[2016-08-09] MEDS ORDERED: ASPI81TA28 PO (15:14)
[2016-08-09 15:18] VITALS: BP 136/65; PULSE 99; TEMP 36.4; O2SAT 90
--- NOTE | 2016-08-10 08:08 | Medical Consult ---
Consultation Date of Consultation: August 09, 2016. Attending Physician: Allen Quiroz M.D. Reason for Consultation: Altered mental status History of Present Illness 81 yo female who underwent a right FLORENTINO on 08/08, experienced some confusion early in the morning on 08/09. Her daughter was at the bedside and she says that when the RN woke her at 4am for vital signs, she did not know her name, her daughter , where she was. She was very agitated and upset and took a long time to calm her down. Her daughter was very concerned that she may have been having a stroke. CT head was ordered and was normal. Her CBC and BMP were unremarkable. Neurology was consulted, when they evaluated her she was completely oriented although still very agitated with short answers and wanting to go home. Her altered mental status was likely due to narcotics in addition to some hospital delirium which quickly resolved. On 08/09 when I evaluated patient, she was verbally abusive to the RN who was trying to help her. When I first talked with her she responded in Belgian and then finally agreed to speak with me in Armenian. She admitted to right hip pain but it was better, controlled with pain medications. She denied chest pain , dyspnea, N/V/D. She was really concerned about constipation and I assured her that she was only 1 day out from surgery, her bowels would likely move in the next day or so. I encouraged her to stay active and she got angry because she said she could not walk here in the hospital since she was on a bed alarm and "the bells and whistles keep going off and driving me crazy." Her daughter was at the bedside, said that she was back to herself and she felt the best thing would be to take her home. Past Medical/Surgical History PAST MEDICAL HISTORY: Hypertension, anxiety, rheumatoid arthritis, CIDP and sleep apnea. She denies heart disease, diabetes or DVT. PAST SURGICAL HISTORY: Bilateral TKA and an old lumbar surgery. Family History Mother - DVT Social History Smoking Status: Never Smoker Smokeless Tobacco Use: No Alcohol Use: none Housing Status: lives alone Occupation Status: retired Allergies Coded Allergies: Penicillins (Verified Allergy, Mild, UNSURE, 08/08/16) Sulfamethoxazole w/Trimethoprim (Verified Allergy, Mild, UNSURE, 08/08/16) Home Medications MEDICATIONS: Aspirin 81 mg daily, Ativan 0.5 mg p.r.n., atorvastatin 20 mg daily, vitamin B12, fentanyl patch 25 mcg every 72 hours, fish oil, folic acid, gabapentin 300 mg 2 capsules 3 times daily, hydrochlorothiazide 25 mg half tablet daily, methotrexate 2.5 mg 6 tablets once per week, metoprolol 50 mg b.i.d., probiotic, Vicodin 5/325, vitamin D3, and pilocarpine 5 mg. Review of Systems Constitutional: No chills, No fatigue, No fever, No problem reported, No sweats , No weakness, No weight loss Eyes: No diplopia, No discharge, No eye pain, No problem reported, No redness, No worsening of vision ENT: No dental problems, No hearing loss, No nasal symptoms, No problem reported, No sore throat, No tinnitus, No trouble swallowing, No unusual epistaxis Respiratory: No cough, No dyspnea at rest, No dyspnea on exertion, No hemoptysis, No problem reported, No shortness of breath, No sputum, No wheezing Cardiovascular: No PND, No chest pain, No claudication, No edema, No orthopnea , No palpitations, No problem reported Abdomen: + constipation, No GI bleeding, No diarrhea, No nausea, No pain, No problem reported, No vomiting Musculoskeletal: + joint pain (right hip), + muscle pain (right hip), No calf pain, No problem reported, No swelling Genitourinary - Female: No dysuria, No hematuria, No urinary frequency, No urinary incontinence, No urinary retention, No urinary urgency Neurologic: No balance problems, No memory loss, No numbness/tingling, No paralysis, No problem reported, No vertigo, No weakness Psychiatric: No anhedonism, No anxiety, No depression symptoms, No insomnia, No problem reported, No substance abuse Endocrine: No excessive thirst, No excessive urination, No fatigue, No problem reported Hematologic / Lymphatic: No abnormal bleeding/bruising, No clotting problems, No night sweats, No problem reported, No swollen lymph nodes Integumentary: No bleeding, No color change, No itch, No new/changing skin lesions, No problem reported, No rash Allergic / Immunologic: No environmental allergies, No food allergies, No frequent infections, No hives, No pet sensitivities, No poor healing, No problem reported, No prolonged convalescence, No seasonal allergies Physical Exam Date Time Temp Pulse Resp B/P Pulse Ox O2 Delivery O2 Flow Rate FiO2 08/09/16 15:18 36.4 99 17 90 Room Air 08/09/16 15:06 36.4 99 17 136/65 90 Room Air 08/09/16 11:35 36.5 56 16 110/62 96 Room Air 08/09/16 11:35 62 General Appearance: WD/WN, no apparent distress Head: normocephalic, atraumatic Eyes: normal inspection, EOMI, sclerae normal ENT: normal ENT inspection, hearing grossly normal, pharynx normal Neck: supple, no adenopathy, no JVD, trachea midline Respiratory/Chest: chest non-tender, lungs clear, normal breath sounds, no respiratory distress, no accessory muscle use Cardiovascular: regular rate, rhythm, no edema, no gallop, no JVD, no murmur, normal peripheral pulses Abdomen/GI: normal bowel sounds, non tender, soft, no organomegaly Back: normal inspection, no CVA tenderness, no muscle spasm, normal range of motion Extremities/Musculoskelatal: no calf tenderness, normal capillary refill, no pedal edema, pelvis stable, + pertinent finding (right hip tender, less ROM, bruising, drain in place) 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 Comparison: None. Findings: The paranasal sinuses and mastoid air cells are clear. The calvarium and skull base are intact. The ventricles and sulci are within normal limits. There is no mass, hematoma, midline shift, or acute infarct. Findings of age-related chronic small vessel change and atrophy. Impression: No acute intracranial abnormality. Age-related change Last Resulted CBC 08/09/16 05:00 Red Blood Count 3.75, Mean Corpuscular Volume 86.9, Mean Corpuscular Hemoglobin 30.4, Mean Corpuscular Hemoglobin Concent 35.0, Mean Platelet Volume 8.8, Neutrophils (%) (Auto) 85.2, Lymphocytes (%) (Auto) 8.3, Monocytes (%) (Auto) 6.1, Eosinophils (%) (Auto) 0.0, Basophils (%) (Auto) 0.1, Neutrophils # (Auto) 12.92, Lymphocytes # (Auto) 1.25, Monocytes # (Auto) 0.92, Eosinophils # (Auto) 0.00, Basophils # (Auto) 0.01 Last Resulted BMP 08/09/16 05:00 Assessment & Plan 81 yo female s/p right FLORENTINO on 08/08, we were asked to evaluate for acute mental status change around 4am on 08/09 - Altered mental status: likely multifactorial with narcotics and some hospital delirium resolved quickly and on 08/09 she was completely oriented and wanting to go home CT head normal, labs normal, no fever or other signs of infection would be clear for discharge from medical perspective
[2016-08-11] MEDS ORDERED: FENTANYL PATCH REMOVE & WASTE SCH (08:59)
[2016-08-11] MEDS ORDERED: FENTANYL 25 MCG/HR TDSY TD SCH (09:00)
--- NOTE | 2016-08-15 12:24 | DISCHARGE SUMMARY ---
DISCHARGE DIAGNOSIS: Degenerative joint disease, right hip. SECONDARY DIAGNOSIS: None. CONSULTS: Dr. Mishra and Dr. Hines. COMPLICATIONS: None. PROCEDURE: The patient underwent a right total hip arthroplasty, direct anterior approach with Dr. Quiroz on 08/08/2016. BRIEF HISTORY: Please see previously dictated history and physical. HOSPITAL SUMMARY: The patient was admitted on the above day for the above procedure. Procedure went without complication. Postop day 1, the patient was feeling well without complaints. She denied chest pain or shortness of breath. Vital signs were stable. She was afebrile. Overnight, she had some confusion. Medicine was consulted and neurology was consulted. CT of the head was negative. The patient's narcotics were cut back. She did do well with physical therapy. Hemovac drained 180 and 140 mL per shift. Hemoglobin was 11.4. The patient continued to progress with therapy. Roxicodone was discontinued. She was put back on her normal dose of [place]. She was discharged later that day to the home with her family. For further review, please see the chart. Lab, x-ray data and discharge instructions as per chart. MTDD
== END 2016-08-09 17:42 | disposition home health service (06) | DRG 470 ==
LOC: ENRESERVTM → ENRESERVDT → C.ACU 09:49 → C.3E 10:00
PROVIDERS: ADMIT Orthopaedic Surgery; ATTEND Orthopaedic Surgery
PROC: 0SR904Z Replacement of Right Hip Joint with Ceramic on Polyethylene Synthetic Substitute, Open Approach (ICD-10-PCS; principal; 2016-08-08 11:45)
DX: M16.11 Unilateral primary osteoarthritis, right hip (principal); G61.81 Chronic inflammatory demyelinating polyneuritis; F05 Delirium due to known physiological condition; I10 Essential (primary) hypertension; F41.9 Anxiety disorder, unspecified; F43.10 Post-traumatic stress disorder, unspecified; M81.0 Age-related osteoporosis without current pathological fracture; M79.7 Fibromyalgia; G47.30 Sleep apnea, unspecified; M06.9 Rheumatoid arthritis, unspecified; M35.00 Sjogren syndrome, unspecified; I08.1 Rheumatic disorders of both mitral and tricuspid valves; M54.2 Cervicalgia; R07.89 Other chest pain; M54.6 Pain in thoracic spine; Y92.230 Patient room in hospital as the place of occurrence of the external cause; T40.605A Adverse effect of unspecified narcotics, initial encounter; Z96.653 Presence of artificial knee joint, bilateral; Z23 Encounter for immunization; Z79.82 Long term (current) use of aspirin; Z79.891 Long term (current) use of opiate analgesic; Z79.899 Other long term (current) drug therapy